=== PATIENT | female | born 1965 | race Caucasian/White ===

== ENCOUNTER → 2024-03-11 | Outpatient (CLI) | payer BC ==
[~2024-03-11] MED LIST: PROHANCE 279.3MG/ML 15ML VIAL ONE
== END ==
LOC: M PLAIMG 07:34
PROVIDERS: ATTEND Physician Assistant Medical
DX: Q85.83 Von Hippel-Lindau syndrome (principal)
CPT/HCPCS: 70553; 72156; A9576

== ENCOUNTER → 2024-03-13 | Outpatient (CLI) | payer BC | LOC: M PLAIMG 07:32 → EDUNIT# 08:00 | PROVIDERS: ATTEND Physician Assistant Medical | DX: Q85.83 Von Hippel-Lindau syndrome (principal) | CPT/HCPCS: 72157; 72158; A9576 ==